=== PATIENT | male | born 1950 | race Caucasian/White ===

== ENCOUNTER 2018-12-23 12:57 | Emergency (ER) | payer OTHER ==
[~2018-12-23] VITALS: Ht 172.7 cm; Wt 62.1 kg
[2018-12-23] MEDS ORDERED: PRAVACHOL40 MG PO (13:02)
[2018-12-23] MEDS ORDERED: PROPRANOLOL 1010 MG PO (13:03)
[2018-12-23] MEDS ORDERED: VENTOLIN HFA 1818 GM INH (13:03)
[2018-12-23] MEDS ORDERED: OMEPRAZOLE20 MG PO (13:04)
[2018-12-23 13:34] VITALS: BP 115/69
== END 2018-12-23 13:35 ==
LOC: ER 12:57
DX: J44.9 Chronic obstructive pulmonary disease, unspecified (principal); G89.29 Other chronic pain; M54.5 Low back pain; E78.00 Pure hypercholesterolemia, unspecified; I10 Essential (primary) hypertension; F17.210 Nicotine dependence, cigarettes, uncomplicated; Z88.8 Allergy status to other drugs, medicaments and biological substances

== ENCOUNTER 2019-08-04 13:34 | Emergency (ER) | payer OTHER ==
[~2019-08-04] VITALS: Ht 172.7 cm; Wt 65.8 kg
[~2019-08-04 13:34] MED LIST: OMEPRAZOLE20 MG PO; PRAVACHOL40 MG PO; PROPRANOLOL 1010 MG PO; VENTOLIN HFA 1818 GM INH
[2019-08-04 14:02] LABS: HEMATOCRIT 41.5 % (42.0-52.0); HEMOGLOBIN 12.9 gm/dL (14.0-18.0); MCH 22.1 pg (26.0-34.0); MCHC 31.2 g/dL (28.0-37.0); PLATELET COUNT 238 thou/uL (150-400); RBC 5.85 mil/uL (4.50-6.00); RDW 15.5 % (10.5-14.5); WBC 4.9 thou/uL (4.0-11.0)
[2019-08-04 14:05] VITALS: BP 140/68
[2019-08-04 14:18] LABS: ANION GAP 11 mmol/L (7-16); BUN 13 mg/dL (7-18); CALCIUM 8.9 mg/dL (8.5-10.1); CHLORIDE 101 mmol/L (98-107); CO2 27 mmol/L (21-32); CREATININE 0.7 mg/dL (0.7-1.3); GLUCOSE 213 mg/dL (74-106); POTASSIUM 3.5 mmol/L (3.5-5.1); SODIUM 139 mmol/L (136-145)
[2019-08-04 14:20] LABS: AMP/METHAMP Negative (Negative); BARBITURATES Negative (Negative); BENZODIAZEPINES Negative (Negative); COCAINE Negative (Negative); METHADONE Negative (Negative); OPIATES Negative (Negative); PCP Negative (Negative)
[2019-08-04 14:25] LABS: ABSOLUTE NEUTROPHILS 2.5 thou/uL (1.4-8.2)
[2019-08-04 14:26] LABS: HYPOCHROMASIA 1+; MICROCYTES 1+
[2019-08-04 14:28] LABS: ALBUMIN 3.9 g/dL (3.4-5.0); SGOT 51 U/L (15-37); SGPT 48 U/L (30-65); TOTAL BILIRUBIN 0.4 mg/dL (<0.1-1.0); TOTAL PROTEIN 7.6 g/dL (6.4-8.2); TROPONIN-I <0.06 ng/mL (<0.06)
== END 2019-08-04 15:43 | disposition home or self-care (01) ==
LOC: ER 13:34
PROVIDERS: Physician Assistant
DX: F10.129 Alcohol abuse with intoxication, unspecified (principal); R07.9 Chest pain, unspecified; R51 Headache; I10 Essential (primary) hypertension; J44.9 Chronic obstructive pulmonary disease, unspecified; J45.909 Unspecified asthma, uncomplicated; E78.00 Pure hypercholesterolemia, unspecified; F17.210 Nicotine dependence, cigarettes, uncomplicated; Z91.048 Other nonmedicinal substance allergy status; V89.2XXA Person injured in unspecified motor-vehicle accident, traffic, initial encounter; Y93.89 Activity, other specified; Y92.488 Other paved roadways as the place of occurrence of the external cause; Y99.8 Other external cause status; Y90.9 Presence of alcohol in blood, level not specified

== ENCOUNTER 2019-10-14 21:58 | Inpatient (IN) | payer OTHER ==
[~2019-10-14] VITALS: Ht 170.2 cm; Wt 56.7 kg
[2019-10-14 21:58] VITALS: BP 165/81
[2019-10-14 22:49] LABS: ABSOLUTE NEUTROPHILS 8.2 thou/uL (1.4-8.2); HEMATOCRIT 42.5 % (42.0-52.0); HEMOGLOBIN 12.6 gm/dL (14.0-18.0); LYMPHOCYTES 6.4 % (24.0-44.0); MCH 21.3 pg (26.0-34.0); MCHC 29.7 g/dL (28.0-37.0); MCV 71.5 fL (80.0-100.0); MONOCYTES 9.3 % (1.0-8.0); PLATELET COUNT 179 thou/uL (150-400); POLYS 84.3 % (36.0-66.0); RBC 5.94 mil/uL (4.50-6.00); RDW 17.6 % (10.5-14.5); WBC 9.8 thou/uL (4.0-11.0)
[2019-10-14 22:50] LABS: CALCIUM 8.9 mg/dL (8.5-10.1); CREATININE 1.1 mg/dL (0.7-1.3)
[2019-10-14 22:56] LABS: ALBUMIN 4.1 g/dL (3.4-5.0); TOTAL BILIRUBIN 0.7 mg/dL (<0.1-1.0); TOTAL PROTEIN 8.1 g/dL (6.4-8.2)
[2019-10-14 23:12] LABS: URINE BILIRUBIN NEGATIVE (Negative); URINE BLOOD 1+ (Negative); URINE CLARITY CLEAR; URINE COLOR YELLOW; URINE GLUCOSE-RANDOM* NEGATIVE (Negative); URINE KETONES 1+ (Negative); URINE LEUKOCYTES-REFLEX NEGATIVE (Negative); URINE NITRITE-REFLEX NEGATIVE (Negative); URINE PROTEIN (DIPSTICK) 2+ (Negative); URINE SPECIFIC GRAVITY >= 1.030 (1.005-1.035); URINE UROBILINOGEN 0.2 E.U./dl (0.2-1.0)
[2019-10-14 23:31] LABS: BACTERIA-REFLEX 1-9 Few /HPF (None Seen); MUCUS 0-3 Light strn/LPF (None Seen); SQUAMOUS 0-3 Few /LPF (0-3); URINE RBC 3-10 Few /HPF (0-2); URINE WBC-REFLEX 0-5 Rare /HPF (0-5)
[2019-10-14 23:32] LABS: CRYSTALS None Seen /LPF (None Seen); HYALINE CASTS >10 Many /LPF (None Seen)
[2019-10-15] VITALS (7 sets, daily range): BP systolic 129–164; BP diastolic 65–88
[2019-10-15 00:47] LABS: BE(vivo) -6.5 mmol/L (-2 to +3); HCO3 18.5 mmol/L (22.0-26.0); PO2 62.7 mmHg (80.0-100.0); pH 7.341 (7.360-7.450)
[2019-10-15 01:13] LABS: AMP/METHAMP Negative (Negative); BARBITURATES Negative (Negative); BENZODIAZEPINES Negative (Negative); COCAINE Negative (Negative); METHADONE Negative (Negative); OPIATES Negative (Negative); PCP Negative (Negative)
--- NOTE | 2019-10-15 06:21 | NUR ---
ASSESSMENT: PT ARRIVED TO THE UNIT AT 0400 FROM ED WITH STAFF ACCOMPANING. PT IS ALERT AND ORIENT TIMES THREE. NUNN. FINE TREMORS NOTED. RIGHT FORE HEAD SKIN CA, DERIC. POST NECK SURGERY OF 5 WEEKS AGO. SR PER MONITOR. LACTIC ACID ELEVATED BUT IS TRENDING DOWNWARD, LAST 3.8 CAN BE ANXIOUS AT TIMES. POST ADMISSION, PT WENT TO SLEEP. WILL CONTINUE TO MONITOR.
[2019-10-15 10:24] LABS: ANION GAP 6 mmol/L (7-16); BUN 15 mg/dL (7-18); CALCIUM 8.7 mg/dL (8.5-10.1); CHLORIDE 99 mmol/L (98-107); CO2 29 mmol/L (21-32); CREATININE 0.8 mg/dL (0.7-1.3); GLUCOSE 212 mg/dL (74-106); POTASSIUM 3.6 mmol/L (3.5-5.1); SODIUM 134 mmol/L (136-145); TROPONIN-I <0.06 ng/mL (<0.06)
--- NOTE | 2019-10-15 16:44 | NUR ---
PT CARE ASSUMED APPROX 0700. ASSESSMENTS CHARTED. DENIES PAIN AND SOA. VSS. TOLERATING POC AND ADVANCEMENT IN DIET. UP WITH STANDBY ASSIST. STEADY. DENIES N/V THIS SHIFT. NO DISTRESS NOTED.
[2019-10-16 00:35] VITALS: BP 101/66
--- NOTE | 2019-10-16 03:15 | NUR ---
PT ALERT AND ORIENTED. VITALS STABLE. VOIDING PER URINAL. NO CHEST PAIN, SOB REPORTED. REPORTS LOOSE STOOL FROM PEVIOUS SHIFT. SENNA HELD. PT DECLINED LEVONOX INJECTION. MAG OF 1.7 REPLACED, BUT PATIENT REFUSED BLOOD DRAW TO RECHECK MAG LEVELS; WILL ADD IT TO AM RUN. REPORTS ARTHRITIS PAIN OF LIMBS. NO PAIN MEDS GIVEN. WILL CONTINUE FOLLOWING CURRENT PLAN OF CARE.
[2019-10-16 04:03] LABS: HEMATOCRIT 34.1 % (42.0-52.0); HEMOGLOBIN 10.7 gm/dL (14.0-18.0); MCH 21.8 pg (26.0-34.0); MCHC 31.3 g/dL (28.0-37.0); MCV 69.6 fL (80.0-100.0); RBC 4.89 mil/uL (4.50-6.00); RDW 16.9 % (10.5-14.5); WBC 4.8 thou/uL (4.0-11.0)
[2019-10-16 04:27] LABS: CALCIUM 8.2 mg/dL (8.5-10.1); CREATININE 0.6 mg/dL (0.7-1.3); MAGNESIUM 1.8 mg/dL (1.8-2.4); POTASSIUM 3.7 mmol/L (3.5-5.1)
[2019-10-16 04:45] VITALS: BP 113/65
[2019-10-16 07:30] VITALS: BP 102/58
[2019-10-16 11:00] VITALS: BP 131/71
--- NOTE | 2019-10-16 15:46 | NUR ---
Late entry from yesterday. Cm met with pt at bedside in the afternoon. The pt was a&ox4 and able to participate in conversation;although difficult to understand at times. He acknowledges ethol abuse and indicates he has no intention of not drinking. He has [facility] day [facility] and does not plan on doing that again. He will consider decreasing his intake of beer and vodka. He lives with his sister and gets around the house with a rolator walker. He denies any dc planning needs. He gets meds and [facility]. [facility] resources offered but declined. Encouraged the pt to f[facility] at [facility].
[2019-10-16 16:30] VITALS: BP 125/69
--- NOTE | 2019-10-16 17:31 | NUR ---
PT CARE ASSUMED APPROX 0700. ASSESSMENTS CHARTED. DENIES PAIN AND SOA. VSS. P WITH STEADY GAIT. PT DESIRED TO STAY ANOTHER DAY REPORTING THAT HE STILL FELT SICK. DR BUTLER AGREED BUT PT DENIED ISSUES ALL SHIFT. TOLERATING POC. NO DISTRESS NOTED.
[2019-10-16 19:55] VITALS: BP 135/73
[2019-10-17 03:30] LABS: HEMATOCRIT 37.1 % (42.0-52.0); HEMOGLOBIN 11.6 gm/dL (14.0-18.0); MCH 21.5 pg (26.0-34.0); MCHC 31.1 g/dL (28.0-37.0); MCV 69.1 fL (80.0-100.0); RBC 5.38 mil/uL (4.50-6.00); WBC 6.4 thou/uL (4.0-11.0)
[2019-10-17 03:34] LABS: CALCIUM 8.5 mg/dL (8.5-10.1); CREATININE 0.6 mg/dL (0.7-1.3); POTASSIUM 3.7 mmol/L (3.5-5.1)
[2019-10-17 04:45] VITALS: BP 167/90
--- NOTE | 2019-10-17 05:15 | NUR ---
ASSUMED PT CARE AROUND 2229. PT VSS AND PT C/O NO PAIN. PT STATED NAUSEOUS BUT NO MEDICATION GIVEN. PT AOX4 AND RESTING IN BED. WILL CONTINUE TO MONITOR PT PROGRESSING TOWARDS POC AND DISCHARGE.
[2019-10-17 07:30] VITALS: BP 106/75
[2019-10-17 12:00] VITALS: BP 175/78
[2019-10-17 12:42] LABS: URINE BILIRUBIN NEGATIVE (Negative); URINE BLOOD 1+ (Negative); URINE CLARITY CLEAR; URINE COLOR YELLOW; URINE GLUCOSE-RANDOM* NEGATIVE (Negative); URINE KETONES NEGATIVE (Negative); URINE LEUKOCYTES NEGATIVE (Negative); URINE NITRITE NEGATIVE (Negative); URINE SPECIFIC GRAVITY 1.015 (1.005-1.035)
[2019-10-17 12:57] LABS: SSA (PROTEIN CONFIRMATORY) TRACE (APPROX. 5) mg/dL (Negative); URINE PROTEIN (DIPSTICK) TRACE (Negative)
[2019-10-17 12:58] LABS: CASTS None Seen /LPF (None Seen); SQUAMOUS 0-3 Few /LPF (0-3)
[2019-10-17 12:59] LABS: BACTERIA None Seen /HPF (None Seen); CRYSTALS None Seen /LPF (None Seen); URINE RBC 0-2 Rare /HPF (0-2); URINE WBC 0-5 Rare /HPF (0-5)
[2019-10-17 13:10] VITALS: BP 126/70
--- NOTE | 2019-10-17 16:05 | NUR ---
ASSUMED CARE PT SHIFT CHANGE. ASSESSMENTS CHARTED. MEDS GIVEN PER DEC. PT ALERT AND ORIENTED, VSS, BP ELEVATED- DR NOTIFIED, ORDERS RECEIVED. BP WNL WITHOUT MEDS. PT HAD FEVER THIS SHIFT- TYLENOL GIVEN, PHYSICIAN NOTIFIED- ORDERS RECEIVED. PT SHOWING SIGNS OF ALCOHOL WITHDRAWAL- DR NOTIFIED, CIWA INITIATED. C/O PAIN RIGHT RIB AREA, MANAGED WITH PO TYLENOL. CXR ORDERED--SEE RESULTS. IV ABX INITIATED. C/O NAUSEA THIS SHIFT WITHOUT VOMITING- MANAGED WITH IV ZOFRAN. PT UPDATED ON POC. DENYING OF NEEDS/CONCERNS AT THIS TIME. CONTINUING WITH POC.
[2019-10-17 17:00] VITALS: BP 138/65
[2019-10-17 20:03] VITALS: BP 147/80
[2019-10-18 04:00] LABS: HEMATOCRIT 36.8 % (42.0-52.0); HEMOGLOBIN 11.4 gm/dL (14.0-18.0); MCH 21.4 pg (26.0-34.0); RBC 5.33 mil/uL (4.50-6.00); RDW 16.8 % (10.5-14.5)
[2019-10-18 04:14] LABS: CALCIUM 8.5 mg/dL (8.5-10.1); CREATININE 0.7 mg/dL (0.7-1.3); POTASSIUM 3.2 mmol/L (3.5-5.1)
--- NOTE | 2019-10-18 04:25 | NUR ---
ASSUMED PT CARE AT 1900. PT IS ALERT AND ORIENTED WITH NO SIGN OF DISTRESS NOTED. PT IS STABLE. CIWA PRTOCOL IN PLACE. FALL PRECAUTION IN PLACE. ASSESSMENT COMPLETED AND DOCUMETED. SCHEDULED MEDS ADMINISTERED TO PT. PT IS STABLE THROUGHOUT THE NIGHT. CONTINUE TO MONITOR PATIENT.
[2019-10-18 05:00] VITALS: BP 154/78
[2019-10-18 08:00] VITALS: BP 136/77
[2019-10-18 11:30] VITALS: BP 112/73
--- NOTE | 2019-10-18 14:02 | NUR ---
ASSUMED CARE AT 0700, SHIFT ASSESSMENT DONE, MEDS GIVEN, VSS. DENIES PAIN, NAUSEA, VOMITING. RECEIVING IV ANTIBIOTICS FOR PNA. NSR ON TELE. WILL CONTINUE TO ASSESS AND ASSIST WITH ADLs NEEDED.
[2019-10-18 16:10] VITALS: BP 132/64
[2019-10-18 19:59] VITALS: BP 153/63
[2019-10-19 04:00] VITALS: BP 133/66
[2019-10-19 04:53] LABS: HEMATOCRIT 33.2 % (42.0-52.0); HEMOGLOBIN 10.1 gm/dL (14.0-18.0); MCH 21.2 pg (26.0-34.0); MCHC 30.5 g/dL (28.0-37.0); MCV 69.5 fL (80.0-100.0); RBC 4.78 mil/uL (4.50-6.00); RDW 16.9 % (10.5-14.5); WBC 6.9 thou/uL (4.0-11.0)
[2019-10-19 05:01] LABS: CALCIUM 7.7 mg/dL (8.5-10.1); CREATININE 0.6 mg/dL (0.7-1.3); POTASSIUM 3.6 mmol/L (3.5-5.1)
--- NOTE | 2019-10-19 05:26 | NUR ---
ASSUMED PT CARE AT 1900. PT IS ALERT AND ORIENTED WITH NO SIGN OF DISTRESS NOTED. PT IS LAYING IN BED. FALL PRECAUTION IN PLACE. ASSESSMENT COMPLETED AND DOCUMENTED. SCHEDULED MEDS ADMINISTERED TO PT. CONTINUE TO MONITOR PATIENT. DENIES ANY FURTHER NEEDS AT THIS TIME.
[2019-10-19 08:08] VITALS: BP 141/94
[2019-10-19 11:29] VITALS: BP 137/77
--- NOTE | 2019-10-19 12:51 | EKG ---
[address] [address] ELECTROCARDIOGRAM REPORT Name: VANESA GLASGOW Room #: 206-P ADM IN M.R.#: [id number] Admission: 10/15/19 Attend Phys: Khadar Mar MD Discharge: Date of : 48 Report #: [id number] THIS REPORT FOR: //name// [facility] Test Date: 2019-10-15 Test Time: 09:11:08 Pat Name: VANESA GLASGOW Department: Room: 206 P Gender: M Installation Tech: Jeana DESAI : 1950 Requested By: Khadar Mar Order Number: [id number] MD: Otilio Donnelly Measurements Intervals [place] Rate: 89 P: 45 TX: 152 QRS: 78 QRSD: 104 T: 77 QT: 403 QTc: 491 Interpretive Statements Sinus rhythm Nonspecific T abnrm, anterolateral leads Compared to ECG 10/07/2015 15:09:22 Ventricular premature complex(es) no longer present Electronically Signed On 10-19-2019 12:51:29 [employer]BSURFACE [employer] OPERATOR by Otilio Donnelly [email or web address] <ELECTRONICALLY SIGNED> By: Otilio Donnelly MD 10/19/19 1251 0 0 Otilio Donnelly MD /EPI
--- NOTE | 2019-10-19 15:19 | NUR ---
spoke with patient regarding dc planning. he reports he lives with his sister. he reports PCP [facility] at the [facility]. He is open to Home health if ordered with no preference for HH agency. Noted no therapy ordered. Rn reports he gets up to BSC in room. Walker in room. casemgt following.
[2019-10-19 15:40] VITALS: BP 180/96
[2019-10-19 20:38] VITALS: BP 157/77
[2019-10-20] VITALS (7 sets, daily range): BP systolic 114–178; BP diastolic 51–79
--- NOTE | 2019-10-20 04:44 | NUR ---
ASSUMED PT CARE AT 1900. PT IS ALERT AND ORIENTED WITH NO SIGN OF DISTRESS NOTED. PT IS STABLE. DENIES ANY PAIN, PT IS AFEBRILE. FALL PRECAUTION IN PLACE. ASSESSMENT COMPLETED AND DOCUMENTED. SCHEDULED MEDS ADMINISTERED TO PT. DENIES ANY FURTHER NEEDS AT THIS TIME.
[2019-10-20] MEDS ORDERED: AUGMENTIN 875-1 EACH PO (10:35)
[2019-10-20] MEDS ORDERED: VITAMIN B-1100 M2 PO (10:35)
--- NOTE | 2019-10-20 14:11 | NUR ---
patient to dc home later this evening. He has transportation home and no needs for casemgt.
--- NOTE | 2019-10-20 19:55 | NUR ---
ASSUMMED PT CARE AT APPROXIMATELY 0700. PT A&O X4. ASSESSMENT CHARTED. FALL PRECAUTIONS IN PLACE. PT DENIES HAVING CHEST PAIN. PT DENIES HAVING SOB. PT DENIES HAVING ACUTE PAIN. PT DISCHARGING HOME C SELF CARE. PT RECEIVED DISCHARGE EDUCATION. PT STATED UNDERSTANDING AND DENIED HAVING FURTHER QUESTIONS. IV DC. TELE DC. HOSPITAL TRANSPORT TAKING PT OFF UNIT. AWAITED FOR PT'S RIDE TO ARRIVE. PT TRANSPORTED OFF UNIT AT APPROXIMATELY 1930 C HOSPITAL TRANSPORT TO MEET PT'S RIDE IN FRONT OF HOSPITAL. PT TOOK HIS BELONGINGS. PT COMFORTABLE. PT DENIED HAVING FURTHER CONCERNS. PT AMBULATES STEADY C WALKER. BP ELEVATED AT MID-DAY. PT RECEIVED PRN BP MEDICATION. BP STABLE. VITAL SIGNS STABLE.
== END 2019-10-20 19:09 | disposition home or self-care (01) | DRG 177 ==
LOC: ER 21:58 → EROBS 10-15 02:51 → 2N 10-15 02:51
PROVIDERS: Emergency Medicine; Nurse Practitioner Family; ADMIT Hospitalist
DX: J69.0 Pneumonitis due to inhalation of food and vomit (principal); J96.01 Acute respiratory failure with hypoxia; E87.2 Acidosis; F10.129 Alcohol abuse with intoxication, unspecified; J44.9 Chronic obstructive pulmonary disease, unspecified; F17.210 Nicotine dependence, cigarettes, uncomplicated; E78.5 Hyperlipidemia, unspecified; I10 Essential (primary) hypertension; K59.00 Constipation, unspecified; R50.9 Fever, unspecified; Z88.8 Allergy status to other drugs, medicaments and biological substances; Z99.81 Dependence on supplemental oxygen; Z79.899 Other long term (current) drug therapy
CPT/HCPCS: 10081